=== PATIENT | female | born 1980 | race Caucasian/White ===

== ENCOUNTER 2019-10-05 07:18 | Emergency (ER) | payer MEDICAID, SELFPAY ==
[~2019-10-05] VITALS: Ht 165.1 cm; Wt 68.0 kg
[2019-10-05 07:31] VITALS: Ht 165.1 cm; Wt 68.0 kg
[2019-10-05 08:32] VITALS: BP 128/78
== END 2019-10-05 08:33 | disposition home or self-care (01) ==
LOC: ED 07:18
DX: J45.901 Unspecified asthma with (acute) exacerbation (principal)
CPT/HCPCS: J3535